=== PATIENT | female | born 1965 | race Caucasian/White ===

== ENCOUNTER 2019-03-28 08:22 | Day surgery (SDC) | payer BC ==
[~2019-03-28 08:22] MED LIST: Lactated Ringers 1,000 ML IV SCH; Sodium Chloride 0.9% 10 ML Syringe FLUSH PRN
[2019-03-28] MEDS ORDERED: Propofol 200 MG/20 ML SDV ONE ×3 (09:25→11:19)
[2019-03-28] MEDS ORDERED: fentaNYL 100 MCG/2 ML SDV ONE (09:25)
--- NOTE | 2019-03-28 18:11 | OR ---
PREOPERATIVE DIAGNOSIS: Dysphagia. POSTOPERATIVE DIAGNOSIS: 1. Distal esophagitis. 2. Distal esophageal nodule. 3. ? Cochran's. PROCEDURE PERFORMED: Esophagogastroduodenoscopy with biopsies. ANESTHESIA: MAC anesthesia. COMPLICATIONS: None. ESTIMATED BLOOD LOSS: Minimal. FINDINGS: 1. Mild gastritis of the antrum, biopsies taken and sent for H. pylori. 2. Unremarkable duodenum. 3. Hill grade 2 esophageal hiatus. 4. Distal esophagitis with mucosal ulceration. 5. Distal esophageal nodule, felt to be inflammatory nature. 6. ? short segment Cochran's esophagus. Multiple biopsies were taken of the distal esophagus and esophagitis. 7. Proximal esophagus is unremarkable. INDICATION FOR PROCEDURE: Ms. Portillo is a 53-year-old female who for the past 6 months has felt like foods get stuck up in her neck. She tells that there is no trouble with foods in her mid or lower chest, this does not happen with liquids. It happens about 2 to 3 times a week. She has had no bloody stools or dark black stools. She does not have any weight loss or family history of esophageal cancer. She has never had any upper endoscopy before. DESCRIPTION OF PROCEDURE: Informed consent was obtained. The patient was brought into the operative room. MAC anesthesia was induced by Anesthesia colleagues. She was placed on the left side, a bite block was in place. The gastroscope was introduced into mouth, down the esophagus, into the stomach, and pylorus was intubated. Duodenum was unremarkable and visualized up to the third portion. There was mild enteritis, which biopsies were taken and sent for H. pylori. On retroflexed view, there was hill grade 2 esophageal hiatus. There were no other abnormalities of stomach. In the distal esophagus, Z-line was at 31 cm. There was significant distal esophagitis with mucosal erosions and above 1 cm circumferential inflammation and possible Cochran's esophagus just above the Z-line. There was also a nodule of approximately 8 mm in this area that looked to be inflammatory in nature. All of this was biopsied. Proximal esophagus was unremarkable. The patient tolerated the procedure well. There was no evidence of significant stenosis of the esophagus. She was awoken from MAC anesthesia by Anesthesia colleagues without incident. She will need to get on an antiacid medication and we will await the biopsy results. RKM: 03/28/2019 11:53:11 MODL: 03/28/2019 17:58:42 /[id number]
--- NOTE | 2019-03-28 18:16 | OR ---
PREOPERATIVE DIAGNOSIS: Screening colonoscopy. POSTOPERATIVE DIAGNOSIS: Adenomatous rectal polyp. ANESTHESIA: MAC anesthesia. COMPLICATIONS: None. BLOOD LOSS: Minimal. FINDINGS: Rectal polyp, 3 mm, removed via cold forceps. START TIME: 1117. CECUM TIME: 1137. STOP TIME: 1143. INDICATION FOR PROCEDURE: This is a first-time screening colonoscopy. The patient has no family history of colon cancer. She denies any symptoms of bleeding, dark black stools, or bowel changes. DETAILS OF PROCEDURE: After informed consent was obtained, the patient was brought to the operating room. MAC anesthesia was induced by Anesthesia colleagues. She was placed in left lateral decubitus position. The colonoscope with an Endocuff was introduced into the rectum. It was advanced to the cecum. The appendiceal orifice and IC valve were photographed. The endoscope was then slowly withdrawn. On retroflexed view, a 3 mm rectal polyp was seen and removed with cold forceps. There were no other pathologic findings except for what is mentioned above in the findings section. The colonoscope was withdrawn after the rectum was desufflated, and the patient tolerated the procedure well and awoken from anesthesia. RKM: 03/28/2019 11:56:40 MODL: 03/28/2019 18:11:52 /[id number]
== END 2019-03-28 13:05 | disposition home or self-care (01) ==
LOC: VM.SDS 08:22
PROVIDERS: ATTEND Student in an Organized Health Care Education/Training Program
DX: Z12.11 Encounter for screening for malignant neoplasm of colon (principal); K22.10 Ulcer of esophagus without bleeding; K62.1 Rectal polyp; K29.70 Gastritis, unspecified, without bleeding; K22.8 Other specified diseases of esophagus; K44.9 Diaphragmatic hernia without obstruction or gangrene; E66.9 Obesity, unspecified; Z68.36 Body mass index [BMI] 36.0-36.9, adult; Z79.899 Other long term (current) drug therapy
CPT/HCPCS: J2704; J3010; J7120

== ENCOUNTER 2022-03-19 09:17 | Day surgery (SDC) | payer BC ==
[~2022-03-19 09:17] MED LIST changes: -Sodium Chloride 0.9% 10 ML Syringe FLUSH PRN
[2022-03-19] MEDS ORDERED: fentaNYL 100 MCG/2 ML SDV ONE (09:50)
[2022-03-19] MEDS ORDERED: Propofol 200 MG/20 ML SDV ONE (09:50)
== END 2022-03-19 11:59 | disposition home or self-care (01) ==
LOC: VM.SDS 09:17
PROVIDERS: ATTEND Student in an Organized Health Care Education/Training Program
DX: K20.90 Esophagitis, unspecified without bleeding (principal); F41.9 Anxiety disorder, unspecified; F32.A Depression, unspecified; E66.9 Obesity, unspecified; K21.9 Gastro-esophageal reflux disease without esophagitis; Z87.19 Personal history of other diseases of the digestive system; Z98.890 Other specified postprocedural states; Z79.899 Other long term (current) drug therapy; Z68.39 Body mass index [BMI] 39.0-39.9, adult
CPT/HCPCS: 00731; J2704; J3010; J7120

== ENCOUNTER 2024-03-14 00:10 | Emergency (ER) | payer OTHER, BC ==
[2024-03-14 00:58] LABS: BASOPHILS PERCENT AUTO 0.4 % (0.2-1.2); EOSINOPHILS ABSOLUTE AUTO 0.2 x10^3/uL (0.0-0.5); EOSINOPHILS PERCENT AUTO 2.5 % (0.0-4.0); HEMATOCRIT 38.2 % (33.0-47.0); HEMOGLOBIN 13.1 g/dL (12.0-16.0); IMMATURE GRAN ABSOLUTE AUTO 0.02 x10^3/uL (0.00-0.07); LYMPHOCYTES PERCENT AUTO 39.2 % (25.0-50.0); MEAN CORPUSCULAR HEMOGLOBIN 30.7 pg (26.0-32.0); MEAN CORPUSCULAR HGB CONC 34.3 g/dL (32.0-36.0); MEAN CORPUSCULAR VOLUME 89.5 fL (78.0-93.0); MONOCYTES ABSOLUTE AUTO 0.6 x10^3/uL (0.0-0.8); MONOCYTES PERCENT AUTO 7.7 % (2.0-11.0); NEUTROPHILS ABSOLUTE AUTO 3.8 x10^3/uL (1.8-7.7); NEUTROPHILS PERCENT AUTO 49.9 % (50.0-80.0); PLATELET COUNT,PLT 258 x10^3/uL (130-400); RED BLOOD CELL COUNT 4.27 x10^6/uL (4.00-5.50); WHITE BLOOD CELL COUNT,WBC 7.5 x10^3/uL (4.0-10.0)
[2024-03-14] MEDS: Lactated Ringers 1,000 ML IV ONE (01:15)
[2024-03-14 01:19] LABS: A/G RATIO 0.92; ALANINE AMINOTRANSFERASE,ALT 36 U/L (14-59); ALBUMIN 3.4 g/dL (3.4-5.0); ALKALINE PHOSPHATASE 102 U/L (46-116); ASPARTATE AMNIOTRANSFERASE,AST 39 U/L (15-37); BILIRUBIN TOTAL 0.2 mg/dL (0.2-1.0); BLOOD UREA NITROGEN,BUN 13 mg/dL (7-18); CALCIUM 8.6 mg/dL (8.5-10.1); CARBON DIOXIDE,CO2 27 mmol/L (21-32); CHLORIDE,CL 104 mmol/L (98-107); CREATININE 0.9 mg/dL (0.55-1.02); ETHANOL BLOOD MEDICAL 269 mg/dL (0-3); GLUCOSE RANDOM 142 mg/dL (70-99); POTASSIUM,K 3.3 mmol/L (3.5-5.1); PROTEIN TOTAL,TP 7.1 g/dL (6.4-8.2); SODIUM,NA 142 mmol/L (136-145)
[2024-03-14 01:20] LABS: ANION GAP 14.3 mmol/L (5-15); ESTIMATED GFR 74 mL/min (>=60)
[2024-03-14 01:22] LABS: INR 0.9 (0.9-1.1); PROTHROMBIN TIME 8.9 SEC (8.9-11.5)
== END 2024-03-14 02:39 | disposition home or self-care (01) ==
LOC: VM.ED 00:10
DX: S06.0X1A Concussion with loss of consciousness of 30 minutes or less, initial encounter (principal); S00.83XA Contusion of other part of head, initial encounter; F10.120 Alcohol abuse with intoxication, uncomplicated; E66.9 Obesity, unspecified; Z90.710 Acquired absence of both cervix and uterus; Y90.8 Blood alcohol level of 240 mg/100 ml or more; W10.9XXA Fall (on) (from) unspecified stairs and steps, initial encounter
CPT/HCPCS: 36415; 70450; 71045; 72125; 80053; 80307; 85025; 85610; 85730; 94760; 96360; 99284; J7120